=== PATIENT | male | born 1955 | race Caucasian/White ===

== ENCOUNTER 2018-01-18 05:25 | Day surgery (SDC) | payer BC, OTHER ==
[~2018-01-18] VITALS: Ht 177.8 cm; Wt 117.9 kg
--- NOTE | ~2018-01-18 | O ---
[address] [place] [address] OPERATIVE REPORT Name: CESIA SHARPE Room #: DEP [facility]..#: [id number] Admission: 01/18/18 Attend Phys: Raimundo Luevano MD Discharge: 01/18/18 Date of : 55 Report #: [id number] THIS REPORT FOR: //name// CC: Kylah Luevano DATE OF SERVICE: 01/18/[address] Raimundo Luevano, Dr. Kylah Castle, Dr. Kg Buck. PREOPERATIVE DIAGNOSIS: Incarcerated recurrent ventral incisional hernia. POSTOPERATIVE DIAGNOSIS: Incarcerated recurrent ventral incisional hernia. PROCEDURE: Repair of a recurrent ventral incisional hernia. SURGEON: Raimundo Luevano MD ANESTHESIA: Local IV sedation. DESCRIPTION OF PROCEDURE: The patient was brought to the operating room and placed on operative table in the supine position. Sequential compression devices were in place for DVT prophylaxis. There was no indication for preoperative antibiotics. The patient underwent IV sedation and the abdomen was then prepped and draped in a sterile fashion. Skin and subcutaneous tissue were then infiltrated with 0.5% Marcaine and 1% Xylocaine in a 1:1 mixture. Transverse skin incision was performed over the hernia using #15 scalpel blade. Hemostasis obtained using electrocautery. Dissection was carried down through subcutaneous tissue to some incarcerated preperitoneal fat, which was dissected free and reduced back through the fascia. Fascial edges were dissected free and then easily closed with interrupted [id number] #1 Prolene sutures. The umbilicus was then tacked to the fascia using a 2-0 chromic suture. Deep and superficial subcutaneous tissue was then reapproximated using simple interrupted 2-0 chromic sutures and the skin then closed with a running 4-0 subcuticular Vicryl stitch. The wound was then dressed with Telfa, 4 x 4 gauze, sponge and tape. The patient was then taken to the recovery room awake, alert and in good condition. Estimated blood loss was approximately 5-10 mL and the patient tolerated procedure well. All sponge, lap and instrument counts correct x 2. <ELECTRONICALLY SIGNED> By: Raimundo Luevano MD 01/23/18 [id number] Raimundo Luevano MD /nt
[~2018-01-18 05:25] MED LIST: AMLODIPINE BESY10 MG PO; ASPIR 8181 M1 PO; ASPIRIN325 PO; CELEXA10 MG PO; CIALIS20 MG PO; CIPRO500 M1 PO; FLAGYL500 MG PO; FLOMAX0.4 MG PO; HYDROCODONE-APA1 TA1 PO; METFORMIN HCL500 MG PO; NORVASC2.5 MG PO; ONDANSETRON HCL4 M2 PO; PRESERVISION A1 EAC2 PO; PRILOSEC 10MG C10 M1 PO; PRILOSEC 20 MG20 MG PO; PROBIOTIC1 EAC1 PO; SENOKOT-S1 TA1 PO; SIMVASTATIN40 MG PO; TYLENOL325 MG PO
[2018-01-18 07:06] VITALS: BP 136/71
[2018-01-18] MEDS ORDERED: NORCO 5-325 TA1 EACH PO (09:05)
[2018-01-18 09:18] VITALS: BP 136/71
== END 2018-01-18 10:15 | disposition home or self-care (01) ==
LOC: TBA 05:25 → OR 05:25
DX: K43.0 Incisional hernia with obstruction, without gangrene (principal); I10 Essential (primary) hypertension; E11.9 Type 2 diabetes mellitus without complications; K21.9 Gastro-esophageal reflux disease without esophagitis; G47.33 Obstructive sleep apnea (adult) (pediatric); F32.9 Major depressive disorder, single episode, unspecified; F41.9 Anxiety disorder, unspecified; Z98.890 Other specified postprocedural states; Z79.899 Other long term (current) drug therapy; Z87.891 Personal history of nicotine dependence; Z88.0 Allergy status to penicillin; Z79.891 Long term (current) use of opiate analgesic; Z79.82 Long term (current) use of aspirin
CPT/HCPCS: 50010; 50101; 50386; 50417; 54118; 56524; 56525; 56526; 62110; 62850; 70005